=== PATIENT | female | born 1930 | race Caucasian/White ===

== ENCOUNTER 2019-01-21 13:48 | Inpatient (IN) | payer OTHER ==
[~2019-01-21] VITALS: Ht 154.9 cm; Wt 44.9 kg
[2019-01-21] VITALS (7 sets, daily range): BP systolic 118–155; BP diastolic 60–78
--- NOTE | ~2019-01-21 | EKG ---
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
--- NOTE | ~2019-01-21 | EKG ---
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
--- NOTE | ~2019-01-21 | PR ---
[place], [place] PROGRESS NOTE NAME: JAVON TRUJILLO V UNIT #: [id number] ROOM: 419 DOCTOR: OXANA PEREZ,JUNE BIRTHDATE: [birth year] DOS: 01/27/2019 SUBJECTIVE: The patient is an 88-year-old female who is being followed for an Acinetobacter bacteremia. She had positive blood cultures on 01/21. Repeat blood cultures from the 5th remained sterile. She is alert, somewhat confused. She is oriented to person and place, confused to time and present illness. Denies any pain. Denies nausea, vomiting, or diarrhea. No cough or shortness of breath. No dysuria that she is aware of. No abdominal pain. She has been afebrile overnight. She continues on cefepime. LABORATORY DATA: No new labs today. PHYSICAL EXAMINATION: VITAL SIGNS: Temperature 98.0, pulse 74, respirations 18, BP 182/87. GENERAL: An 88-year-old female, in no acute distress. HEAD, EYES, EARS, NOSE AND THROAT: Normocephalic, no thrush. NECK: Supple. LUNGS: Clear to auscultation bilaterally. Respirations even and unlabored. HEART: Regular rhythm. No murmur appreciated. ABDOMEN: Soft, nondistended, nontender. Positive bowel sounds. EXTREMITIES: No edema or deformity, +2 bilateral dorsalis pedal pulses. SKIN: Warm, dry, and free of rashes. ASSESSMENT: Acinetobacter bacteremia of unknown etiology. PLAN: She is to continue cefepime at this point for a total of 2 weeks from when her blood cultures cleared on 01/23. CT scans of the abdomen, pelvis, neck, and head reviewed with no significant etiology noted for her bacteremia. She does have a pacemaker in place and possibly to have a MELISSA on Tuesday, rule out infection of the hardware. ADDENDUM I agree with the assessment and plan, reviewed the labs and imaging, made the necessary changes in the note. JUNE CHRIS DAIGLE [place], [place] PROGRESS NOTE NAME: JAVON TRUJILLO V UNIT #: [id number] ROOM: 419 DOCTOR: OXANA PEREZ,JUNE BIRTHDATE: [birth year] Luisa Tavarez MD CM:MIKE [id number] JUNE OXANA PEREZ 01/31/19 0252 interface
--- NOTE | ~2019-01-21 | EKG ---
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
--- NOTE | ~2019-01-21 | CON ---
[place], [place] REPORT OF CONSULTATION [id number] #: [id number] ROOM: 419 DOCTOR: HI CARROLL BIRTHDATE: [birth year] DOS: 01/27/2019 CARDIOLOGY CONSULTATION REASON FOR CONSULTATION: Request for transesophageal echocardiogram to rule out endocarditis. REQUESTING PHYSICIAN: Rosalinda Xiao RN, ACCESS REPRESENTATIVE HISTORY OF PRESENT ILLNESS: An 88-year-old lady with history of cerebrovascular accident, diabetes, seizure disorder, and history of pacemaker placement, presented with altered mental status. Subsequently, found to have Acinetobacter bacteremia and we have been requested to perform MELISSA to rule out endocarditis or device infection. The patient is somewhat encephalopathic. She has multiple family members present including son and daughter who provide most of the history. The patient is denying any specific complaints, but states she does not feel well. Family denies the patient having any history of dysphagia or difficulty swallowing food or choking on food. No esophageal pathology that is aware of. She has never had an EGD. No bleeding problems in the esophagus or stomach. REVIEW OF SYSTEMS: Negative except as described above. PAST MEDICAL HISTORY: Diabetes, CVA, seizure disorder, bradycardia, hypertension. PAST SURGICAL HISTORY: Includes a hysterectomy and a pacemaker placed about 10 years ago with a recent generator change in the past 1 year. She follows with Dr. Richmond for Electrophysiology. No other cardiac problems. She has never had a heart catheterization. They believe she had a stress test many years ago. FAMILY HISTORY: Noncontributory given age. Her parents are . SOCIAL HISTORY: She denies alcohol, tobacco or drug use. HOME MEDICATIONS: Include aspirin 81 mg daily, lisinopril 5 mg daily, metformin 500 mg daily, mirtazapine 7.5 mg daily, nifedipine 60 mg daily, phenytoin and pravastatin 20 mg daily. PHYSICAL EXAMINATION: VITAL SIGNS: Afebrile, pulse 85, respirations 16, blood pressure 194/92, saturating 98% on room air. GENERAL APPEARANCE: She is a petite elderly lady who is sitting in a chair and is a bit lethargic. ENT: Shows moist mucous membranes. She has dentures. NECK: Supple. JVP is normal. No carotid bruits. RESPIRATORY: She has bibasilar rales, otherwise clear. CARDIOVASCULAR: Regular rhythm with normal rate. No appreciable murmurs. She [place], [place] REPORT OF CONSULTATION NAME: JAVON TRUJILLO V UNIT #: [id number] ROOM: 419 DOCTOR: HI CARROLL BIRTHDATE: [birth year] has a left chest wall pacemaker with no fluctuance noted. ABDOMEN: Positive bowel sounds. Soft, nontender. EXTREMITIES: Warm, well perfused. Her legs are thin. There is no edema. 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 LABORATORY DATA: White blood cell count 9.2, hemoglobin 13.2, platelets 151, creatinine 0.95. 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 Ybgv-[id number]-kayglzmv stenosis of the A2 segment of the right anterior cerebral artery. Mild proximal bilateral internal carotid artery stenosis. Mild aneurysm of the ascending aorta 3.[address] abdomen and pelvis showed no acute process. Chest x-ray from 01/21/2019 showed clear lungs. IMPRESSION: 1. Acinetobacter bacteremia. 2. History of permanent pacemaker, details unknown, followed by Dr. Richmond. 3. Hypertension, poorly controlled. 4. Encephalopathy. 5. Seizure disorder. 6. Diabetes. RECOMMENDATIONS: Risks and benefits of transesophageal echocardiogram discussed with the family. The patient is not able to consent and does not demonstrate complete understanding. She had no contraindications of MELISSA and it is reasonable to proceed. She may be at slightly elevated risk of complications given her advanced age and small body habitus. The patient's family understands the risks including rare complication of esophageal rupture and is willing to proceed. Arrangements will be made for transesophageal echocardiogram performed on Tuesday. I will see the patient as needed over the weekend and plan for MELISSA will be made. Thank you for the consultation. Please call with any questions. [place], [place] REPORT OF CONSULTATION NAME: JAVON TRUJILLO V UNIT #: [id number] ROOM: 419 DOCTOR: HI CARROLL BIRTHDATE: [birth year] Dr. HI CARROLL MD CM:CONSTR:REPORT OF CONSULTATION 1108 01/29/19 0743 interface
[~2019-01-21 13:48] MED LIST: ADVIL PO; ASPIRIN FOR CHI81 MG PO; CORDROL20 MG PO; DILANTIN KAPSE100 MG PO; HYDROCODONE BIT1 T11 PO; NIFEDIPINE ER60 MG PO; OMEGA 31000 MG PO; PAROXETIN PO; VITAMIN D1000 IU PO
[2019-01-21 14:04] LABS: BASO % 0.3 % (0.0-1.0); EOS % 0.2 % (1.0-4.0); HEMATOCRIT 40.6 % (37.0-47.0); HEMOGLOBIN 14.6 g/dl (12.0-16.0); LYMPH # 1.8 10*3/uL (1.3-4.4); LYMPH % 16.3 % (27.0-41.0); MEAN PLATELET VOLUME 9.7 fl (9.6-12.3); MONO # 0.6 10*3/uL (0.1-1.0); MONO % 4.9 % (3.0-9.0); NEUT # 8.8 10*3/uL (2.3-7.9); NEUT % 77.9 % (47.0-73.0); PLATELET COUNT AUTOMATED 166 10*3/uL (130-400); RED BLOOD COUNT 4.56 10*6/uL (4.10-5.10); RED CELL DISTRI WIDTH 11.9 % (0-14.5); WHITE BLOOD COUNT 11.3 10*3/uL (4.8-10.8)
[2019-01-21 14:16] LABS: ACT PARTIAL THROMBO TIME 25.1 SECONDS (20.0-32.1)
[2019-01-21 14:20] LABS: ALBUMIN 4.3 gm/dl (3.1-4.5); ALKALINE PHOSPHATASE 73 U/L (45-117); BUN 27 mg/dl (7-24); CHLORIDE 104 mmol/L (98-107); CREATININE 0.99 mg/dL (0.55-1.02); POTASSIUM 4.4 mmol/L (3.5-5.1); SGOT/AST 22 IU/L (3-35); SGPT/ALT 22 U/L (12-78); SODIUM 135 mmol/L (136-145); TOTAL PROTEIN 8.1 gm/dL (6.4-8.2)
--- NOTE | 2019-01-21 14:22 | NUR ---
Elen CHAUDHARY NP AND RN SAMMIE NOTIFIED OF CRITICAL LATIC ACID OF 3.4
[2019-01-21 14:25] LABS: TROPONIN I < 0.015 ng/ml (<0.045)
[2019-01-21 15:40] LABS: BILIRUBIN NEGATIVE (NEGATIVE); BLOOD NEGATIVE (NEGATIVE); CLARITY CLEAR (CLEAR); COLOR YELLOW (YELLOW); GLUCOSE NEGATIVE (NEGATIVE); KETONE NEGATIVE (NEGATIVE); LEUKO ESTERASE NEGATIVE (NEGATIVE); NITRITE NEGATIVE (NEGATIVE); SPECIFIC GRAVITY 1.015 (1.005-1.030); UROBILINOGEN 0.2 E.U./dl (0.2-1.0)
[2019-01-21 15:46] LABS: EPITHELIAL CELLS TNTC; WBC 0-2 wbc/hpf (0-5)
--- NOTE | 2019-01-21 18:41 | NUR ---
PT TO BE TAKEN UPSTAIRS AFTER 7 PM TONIGHT.
--- NOTE | 2019-01-21 19:44 | NUR ---
A 88, admitted to , under the services of GREGG Sotelo DO with a diagnosis of METABOLIC ENCEPHALOPATHY. Chief complaint is CHANGE IN MENTAL STATUS PER DAUGHTER. Patient arrived via stretcher from ER. Monitor applied. Initial assessment completed. Vital signs taken and recorded. GREGG SOTELO DO notified of admission to the unit. Orders received. See assessment for past medical history, medications and allergies. Patient and/or family oriented to unit. [facility] visitation policy reviewed. Clothing/patient valuable form completed. SANDY MILLER
--- NOTE | 2019-01-21 20:25 | NUR ---
NOTIFIED DR CARTER OF PT'S LACTIC ACID OF 3.5. NO NEW ORDERS. CONTINUE TO MONITOR THE PT.
[2019-01-21] MEDS ORDERED: PRAVASTATIN SOD20 MG PO (20:32)
[2019-01-21] MEDS ORDERED: MIRTAZAPINE7.5 MG PO (20:33)
[2019-01-21] MEDS ORDERED: METFORMIN XR500 MG PO (20:33)
[2019-01-21] MEDS ORDERED: LISINOPRIL5 MG PO (20:34)
[2019-01-21] MEDS ORDERED: AVPAK EXTENDED100 M1 PO ×3 (20:44→20:46)
--- NOTE | 2019-01-21 20:49 | NUR ---
SPOKE WITH DR CARTER. INFORMED THAT PT'S MED REC IS COMPLETED. ORDERS RECEIVED. CONTINUE TO MONITOR THE PT.
--- NOTE | 2019-01-21 21:40 | NUR ---
PRN TYLENOL GIVEN FOR TEMP OF 100.2. WILL MONITOR FOR EFFECTIVENESS.
--- NOTE | 2019-01-21 22:34 | NUR ---
RE-EVALUATED. PRN TYLENOL EFFECTIVE. TEMP IS 99.6. CONTINUE TO MONITOR THE PT.
--- NOTE | 2019-01-21 23:22 | NUR ---
DR CARTER AWARE OF LACTIC ACID
[2019-01-22] VITALS: BP 149/65
--- NOTE | 2019-01-22 03:40 | NUR ---
24 HR chart check completed.
[2019-01-22 07:05] LABS: BASO % 0.4 % (0.0-1.0); EOS # 0.1 10*3/uL (0.0-0.4); EOS % 0.8 % (1.0-4.0); HEMATOCRIT 34.6 % (37.0-47.0); HEMOGLOBIN 12.1 g/dl (12.0-16.0); LYMPH # 1.8 10*3/uL (1.3-4.4); LYMPH % 25.3 % (27.0-41.0); MEAN CELL VOLUME 91.1 fl (81.0-99.0); MEAN CORPUSCULAR HGB 31.8 pg (27.0-31.0); MEAN PLATELET VOLUME 10.2 fl (9.6-12.3); MONO # 0.6 10*3/uL (0.1-1.0); MONO % 8.5 % (3.0-9.0); NEUT # 4.6 10*3/uL (2.3-7.9); NEUT % 64.9 % (47.0-73.0); PLATELET COUNT AUTOMATED 142 10*3/uL (130-400); RED CELL DISTRI WIDTH 11.9 % (0-14.5); WHITE BLOOD COUNT 7.2 10*3/uL (4.8-10.8)
[2019-01-22 07:32] LABS: VITAMIN D, 25-HYDROXY 14.9 ng/mL (30-100)
[2019-01-22 07:40] VITALS: BP 160/60
[2019-01-22 07:45] LABS: BUN 24 mg/dl (7-24); CHLORIDE 108 mmol/L (98-107); CREATININE 0.83 mg/dL (0.55-1.02); POTASSIUM 3.8 mmol/L (3.5-5.1); SODIUM 141 mmol/L (136-145)
[2019-01-22 07:52] LABS: THYROID STIM HORMONE (HS) 0.627 uIU/ml (0.358-4.75)
--- NOTE | 2019-01-22 08:09 | NUR ---
Magalying screen and Occupational Therapy referral received. Thank you. Carolina Kirk OTR/L
--- NOTE | 2019-01-22 09:00 | NUR ---
Insurance Policy Issue Clerk in to talk to patient. Patient states lives at home with alone. There are few steps in the home. Physician: kameron cavazos Pharmacy: [facility] health services: none Patient's level of ADLs: MINIMAL ASSIST Patient has working utilities: all working DME: cane Follow-up physician's appointment after d/c: will be made by hospitalist nurse director upon discharge Does patient want to access PORTAL?: no Discharge plan discussed with patient she states she lives at home alone, she has a cane for ambulation but only uses it if she goes to the store, she has a daughter who helps her with whatever she needs, discussed with her VNA and she declines any services at this time, case management will follow. BRI GARBER
--- NOTE | 2019-01-22 10:16 | NUR ---
IV STARTED RIGHT WRIST #22, TOLERATED WELL, GOOD BLOOD RETURN
[2019-01-22] MEDS ORDERED: LATANOPROST 2.2.5 ML OU (11:07)
[2019-01-22] MEDS ORDERED: ZYRTEC10 M3 PO (11:56)
[2019-01-22 12:00] VITALS: BP 181/79
--- NOTE | 2019-01-22 14:15 | NUR ---
Occupational Therapy evaluation completed on 4 with full eval to follow. Precautions include fall risk; bed alarm,impaired cognition;orientation and [place]AK[place] v.s impaired ability to follow 1-2 step instructions, moderate complexity level 95951 via chart review, testing and evaluation. Recommend OT per POC and home with family and home health SN,OT,PT. Thank you for this referral. Carolina Kirk OTR/L
[2019-01-22 16:00] VITALS: BP 180/87
[2019-01-22 18:28] VITALS: BP 140/54
[2019-01-22 20:00] VITALS: BP 165/80
[2019-01-23] VITALS: BP 180/84
--- NOTE | 2019-01-23 01:26 | NUR ---
24 HR chart check completed.
--- NOTE | 2019-01-23 04:44 | NUR ---
PATIENT SET BED ALARM OFF MULTIPLE TIMES. SWINGING AT STAFF AND VERY AGITATED. PATIENT THREW DENTURES ACROSS THE ROOM. ASSISTED BACK TO BED AND REORIENTED TO PLACE AND TIME. BODY AND BED ALARM IN PLACE. BED IN LOWEST POSITION, CALL LIGHT IN REACH
--- NOTE | 2019-01-23 06:12 | NUR ---
DR CARTER AWARE OF POSITIVE BLOOD CULTURES
--- NOTE | 2019-01-23 07:25 | NUR ---
ARRIVED ON SHIFT, INTRODUCED TO PATIENT, BEDSIDE REPORT RECEIVED, PATIENT ASSISTED TO BATHROOM AND BACK TO BED, BED ALARM IN PLACE, WHITE BOARD UPDATED.
--- NOTE | 2019-01-23 07:48 | NUR ---
Shift chart check completed.
[2019-01-23 08:00] VITALS: BP 140/70; BP 149/75
[2019-01-23 12:00] VITALS: BP 116/70
--- NOTE | 2019-01-23 12:45 | NUR ---
Discharge instructions reviewed with patient/family. Patient receptive and verbalizes understanding. Follow-up care arranged AT [facility], ADVISED I NEEDED TO GET PAPERWORK FOR THEM TO TAKE TO [facility], THEY LEFT VIA W/C BY FAMILY, PRIOR TO GETTING NEED PAPERWORK NURSE TO NURSE GIVEN TO RECEIVING FACILITY NURSE ROBERTS, SHE STATED SHE WILL SEND FAMILY BACK TO GET PAPER WORK. IV REMOVED. Written instructions given to patient/family. ISSAC MAX
--- NOTE | 2019-01-23 13:42 | NUR ---
OT NOTE Pt was seen this P.M. 1:1 for 17 minute OT session. Upon arrival pt was supine in bed. Pt identified by name and and had no complaints at this time. Pt transferred supine to sit EOB with SBA. Sit to stand completed from the EOB with CGA and use of straight cane for UE support. Functional mobility was then completed into the bathroom with CGA and use of straight cane. Pt had multiple LOB throughout that required Sloan to correct. Pt transferred on/off standard commode with modA due to requiring assist with sequencing of task and following commands. Pt then stood sink side while washing her hands with Sloan for sequencing of task, pt had retrograde posture that required Sloan to correct. Functional mobility then completed around the room to challenge cane safety and pt presented with fair safety, LOB occured while turning that required Sloan to correct. Pt was educated on safe turniing technique and presented with poor carry over. Pt transferred back into the bed sit to supine with SBA. There she was left with call lighti nh and, tray table in place, and bed alarm activated for safety. Continue with rec D/C plan to home with home health. DOLORES Chase/Lily
[2019-01-23 16:00] VITALS: BP 141/78
[2019-01-23 20:00] VITALS: BP 157/80
[2019-01-24] VITALS: BP 150/70
--- NOTE | 2019-01-24 00:29 | NUR ---
PATIENT REFUSING TO PLACED CARDIAC MONIOTR BACK ON, KEEPS RIPPING OFF. INFORMED, STATED OK.
--- NOTE | 2019-01-24 00:30 | NUR ---
Hep Lock discontinued RW. Site symptomatic, PATIENT PULLED OUT. Pressure applied. Sterile dressing applied. LESLY NOLAN
--- NOTE | 2019-01-24 00:31 | NUR ---
IV started right arm with #22 protective cath after 0 attempts. Site prepped with Chloroprep. Sterile dressing applied. Patient tolerated procedure well. LESLY NOLAN
--- NOTE | 2019-01-24 07:20 | NUR ---
ARRIVED ON SHIFT, INTRODUCED TO PATIENT, BEDSIDE REPORT RECEIVED, NO NEEDS VOICED AT THIS TIME, WHITE BOARD UPDATED.
--- NOTE | 2019-01-24 07:50 | NUR ---
Shift chart check completed.
[2019-01-24 08:00] VITALS: BP 140/72; BP 158/74
--- NOTE | 2019-01-24 09:00 | NUR ---
case management visits with patient, son present, son stated patient would be going to stay with his sister when medically stable for discharge and would like home health services, case management will notify home health when patient is medically stable for discharge
--- NOTE | 2019-01-24 11:15 | NUR ---
CALL PLACED TO DR. ROSALES OFFICE SPOKE TO ANTHONY, SHE VERSED SHE WOULD PUT ON CENSUS FOR PHYSICIAN.
[2019-01-24 12:00] VITALS: BP 153/73
--- NOTE | 2019-01-24 13:48 | NUR ---
PHYSICAL THERAPY Pt too fatigued to participate. Will attempt at later time. Thank you Zandra Peguero, PT, DPT
[2019-01-24 16:00] VITALS: BP 135/62
[2019-01-24 20:00] VITALS: BP 161/72
--- NOTE | 2019-01-24 23:39 | NUR ---
INFORMED THAT THE PATIENT IS CRYING IN HYSTERICS, YELLING OUT FOR HER KIDS. WHEN THE PATIENT WAS ASKED WHAT WAS WRONG SHE STATES, "iM GOING TO SEE MY KIDS FOR THE LAST TIME. IM DYING. GOODBYE." STATED TO ORDER 15MG RESTORIL X1
[2019-01-25] VITALS: BP 159/82
--- NOTE | 2019-01-25 00:39 | NUR ---
PATIENT APPEARS CALM AT THIS TIME. NO LONGER YELLING OUT, PATIENT WATCHING TV. NO DISTRESS NOTED, RESP ARE ERND ON ROOM AIR. WILL MONITOR
--- NOTE | 2019-01-25 01:50 | NUR ---
24 HR chart check completed.
[2019-01-25 08:00] VITALS: BP 142/78; BP 186/75
--- NOTE | 2019-01-25 11:19 | NUR ---
OT NOTE PATIENT IN BED SLEEPING WITH FAMILY PRESENT AND REQUESTED THAT SHE SLEEP. WILL TRY BACK LATER TIME/DATE. MANNY BERNAL/Lily
[2019-01-25 12:00] VITALS: BP 142/70
--- NOTE | 2019-01-25 13:38 | NUR ---
OT NOTE PATIENT SEEN 1:1 OT THIS DATE. PATIENT IDENTIFIED BY NAME AND DATE OF . PATIENT COMPLETED 19 MINUTES OF OT THIS DATE. PATIENT COMPLETED SUPINE TO SIT EOB SBA. COMPLETED SIT TO STAND FROM BED CGA. COMPLETED FUNCTIONAL AMBULATION USE CANE TO BATHROOM CGA. COMPLETED TOILETING TASK CGA. COMPLETED GROOMING TASK STANDING AT SINK CGA COMBING HAIR. PATIENT COMPLETED FUNCTIONAL AMBULATION USE CANE TO BED CGA WITH MIN VERBAL CUES SAFETY. COMPLETED SIT TO SUPINE SBA. COMPLETED LB DRESSING IN LONG SITTING DOFF/RADHA SLIPPERS SUPERVISION AND UB DRESSING RADHA AND DOFF JACKET SBA. FAMILY PRESENT AND ALARM INTACT. CONTINUE TOWARDS PLAN OF CARE. NURSING WITH PATIENT END OF SESSION. MANNY BERNAL/Lily
--- NOTE | 2019-01-25 14:07 | NUR ---
OFF FLOOR FOR CTA.
[2019-01-25 16:00] VITALS: BP 120/84; BP 140/70
[2019-01-25 20:00] VITALS: BP 160/80
--- NOTE | 2019-01-25 20:00 | NUR ---
24 HOUR CHART CHECK COMPLETE.
[2019-01-26] VITALS: BP 149/71
[2019-01-26 05:20] LABS: BASO % 0.3 % (0.0-1.0); EOS # 0.1 10*3/uL (0.0-0.4); EOS % 1.5 % (1.0-4.0); HEMATOCRIT 36.7 % (37.0-47.0); HEMOGLOBIN 13.2 g/dl (12.0-16.0); LYMPH # 1.2 10*3/uL (1.3-4.4); LYMPH % 12.5 % (27.0-41.0); MEAN CELL VOLUME 88.2 fl (81.0-99.0); MEAN CORPUSCULAR HGB 31.7 pg (27.0-31.0); MONO # 0.6 10*3/uL (0.1-1.0); MONO % 6.9 % (3.0-9.0); NEUT # 7.2 10*3/uL (2.3-7.9); NEUT % 78.6 % (47.0-73.0); PLATELET COUNT AUTOMATED 151 10*3/uL (130-400); RED BLOOD COUNT 4.16 10*6/uL (4.10-5.10); RED CELL DISTRI WIDTH 12.2 % (0-14.5); WHITE BLOOD COUNT 9.2 10*3/uL (4.8-10.8)
[2019-01-26 06:18] LABS: CREATININE 0.95 mg/dL (0.55-1.02)
[2019-01-26 08:00] VITALS: BP 178/80
--- NOTE | 2019-01-26 08:53 | NUR ---
NOTIFIED SILKE PEREZ OF IDENTIFIED BLOOD CULTURE ORGANISM. ORDERED TO NOTIFY AND OBTAIN NEW ABX ORDER FROM HER.
--- NOTE | 2019-01-26 09:01 | NUR ---
YELENA SÁNCHEZ CALLED BACK. SAID SHE WOULD CALL LAB AND POSSIBLY CHANGE THE CURRENT ABX REGIMEN HERSELF.
--- NOTE | 2019-01-26 11:41 | NUR ---
SILKE PEREZ NOTIFIED OF BP 168/72 MANUAL. NO NEW ORDERS REC'D.
[2019-01-26 12:00] VITALS: BP 168/72
--- NOTE | 2019-01-26 13:16 | NUR ---
OT NOTE Pt was seen this P.M. 1:1 for 16 minute OT session. Upon arrival pt was supine in bed. Pt identified by name and and had no complaints at this time other than increased fatigue. Pt transferred supine to sit EOB with Sloan for assist with UB. Sit to stand completed from the bed level with Sloan and use of straight cane for UE support. Upon inital rise pt had LOB forwards due to quick rise that required Sloan to correct. Functional mobility was completed to the bathroom with Sloan and use of straight cane due to unsteady gait and multiple LOB over all planes due to poor safety awareness. Pt transferred on/off standard commode with Sloan. Clothing management completed with Sloan due to being unsteady and having LOB without UE support. Pt then stood sink side while washing her hands with CGA. Functional mobility then completed around the room with CGA and use of straight cane. While turning pt had LOB to the R that required Sloan to correct. Safe turning technique education provided and pt completed well with verbal instructions however when no verbal instructions provided pt had poor carry over. Pt transferred back into bed sit to supine with SBA. There she was left with call light in hand, tray table in place, and family at bedside. Continue with rec D/c plan to home with home health. DOLORES Chase/Lily
[2019-01-26 16:00] VITALS: BP 160/64
[2019-01-26 20:00] VITALS: BP 160/80; BP 176/74
--- NOTE | 2019-01-26 20:49 | NUR ---
DR CARTER NOTIFIED OF PT MANUAL BP READING OF 160/80. NO NEW ORDERS AT THIS TIME.
--- NOTE | 2019-01-26 21:00 | NUR ---
24 HOUR CHART CHECK COMPLETE.
[2019-01-27] VITALS: BP 150/80
[2019-01-27 08:00] VITALS: BP 184/92
[2019-01-27 12:00] VITALS: BP 182/87
[2019-01-27 16:00] VITALS: BP 166/84; BP 189/81
--- NOTE | 2019-01-27 17:38 | NUR ---
AMBULATES TO BR X 1 ASSIST, WITH STEADY GAIT
[2019-01-27 20:00] VITALS: BP 154/63
[2019-01-28] VITALS: BP 170/71
[2019-01-28 06:57] LABS: BASO % 0.6 % (0.0-1.0); EOS # 0.2 10*3/uL (0.0-0.4); EOS % 3.1 % (1.0-4.0); HEMOGLOBIN 13.7 g/dl (12.0-16.0); LYMPH # 1.4 10*3/uL (1.3-4.4); LYMPH % 19.7 % (27.0-41.0); MEAN CELL VOLUME 88.6 fl (81.0-99.0); MEAN CORPUSCULAR HGB 31.1 pg (27.0-31.0); MEAN CORPUSCULAR HGB CONC 35.1 g/dl (33.0-37.0); MONO # 0.6 10*3/uL (0.1-1.0); MONO % 7.9 % (3.0-9.0); NEUT # 4.8 10*3/uL (2.3-7.9); NEUT % 68.4 % (47.0-73.0); PLATELET COUNT AUTOMATED 166 10*3/uL (130-400); RED CELL DISTRI WIDTH 12.2 % (0-14.5); WHITE BLOOD COUNT 7.1 10*3/uL (4.8-10.8)
[2019-01-28 07:13] LABS: BUN 18 mg/dl (7-24); CHLORIDE 108 mmol/L (98-107); CREATININE 0.94 mg/dL (0.55-1.02); POTASSIUM 3.1 mmol/L (3.5-5.1); SODIUM 140 mmol/L (136-145)
--- NOTE | 2019-01-28 07:56 | NUR ---
IN TO ASSESS PATIENT, PATIENT ALERT AND ORIENTED TO PERSON AND PLACE, NOT TIME OR SITUATION. BREATHING IS EASY AND REGULAR ON ROOM AIR. NO COMPLAINTS. NO EDEMA NOTED. NO CP. NO SOB. NO N/V/D/C PER PT. DIMINISHED LUNGS T/O. NORMOACITVE BOWELS X4 QUADS. CALL LIGHT WITHIN REACH, WILL MONITOR
[2019-01-28 08:00] VITALS: BP 158/72
--- NOTE | 2019-01-28 09:46 | NUR ---
PATIENTS FAMILY MEMBER REQUESTING THAT HER SUGAR BE CHECKED. SUGAR 209. HE STATED SHE ATE SUGAR THIS MORNING. TOLD HIM WE WOULD CHECK HER SUGAR CLOSER TO LUNCH
--- NOTE | 2019-01-28 11:00 | NUR ---
SPOKE WITN FAMILY MEMBER IN ROOM. THEY ARE AWARE OF PATIENT GOING FOR MELISSA TOMORROW. DISCUSSED WITH PATIENT WELL
[2019-01-28 12:00] VITALS: BP 157/93; BP 160/80
[2019-01-28 16:00] VITALS: BP 147/80
--- NOTE | 2019-01-28 16:22 | NUR ---
SPOKE WITH DR. CARTER. NOTIFIED HIM THAT THERE WERE PLANS FOR THE PATIENT TO HAVE A MELISSA TOMORROW, BUT NO ORDER WAS EVER ENTERED. DR. CARTER STATED TO PUT THE ORDER IN
[2019-01-28 20:00] VITALS: BP 168/71
[2019-01-29] VITALS (8 sets, daily range): BP systolic 99–174; BP diastolic 52–78
--- NOTE | 2019-01-29 00:51 | NUR ---
PATIENT RESTING IN BED WITH EYES CLOSED AT THIS TIME. RESPIRATIONS REGULAR AND NON-LABORED ON ROOM AIR. NO SIGNS OR SYMPTOMS OF DISTRESS NOTED. PATIENT AROUSES TO VERBAL STIMULI. DENIES COMPLAINTS OF PAIN OR DISCOMFORT. BED ALARM ON D/T BEING FALL RISK. AMBULATES TO BATHROOM WITH CANE AND ASSIST X1. VITAL SIGNS STABLE. PATIENT NPO AT MIDNIGHT FOR MELISSA TOMORROW. WILL CONTINUE TO MONITOR. CALL LIGHT IN REACH.
--- NOTE | 2019-01-29 01:22 | NUR ---
24 HR chart check completed.
[2019-01-29 06:08] LABS: BASO % 0.3 % (0.0-1.0); EOS # 0.2 10*3/uL (0.0-0.4); HEMATOCRIT 36.3 % (37.0-47.0); HEMOGLOBIN 12.9 g/dl (12.0-16.0); LYMPH # 1.5 10*3/uL (1.3-4.4); LYMPH % 16.3 % (27.0-41.0); MEAN CELL VOLUME 90.3 fl (81.0-99.0); MEAN CORPUSCULAR HGB 32.1 pg (27.0-31.0); MEAN CORPUSCULAR HGB CONC 35.5 g/dl (33.0-37.0); MEAN PLATELET VOLUME 9.8 fl (9.6-12.3); MONO # 0.7 10*3/uL (0.1-1.0); MONO % 8.2 % (3.0-9.0); NEUT # 6.5 10*3/uL (2.3-7.9); NEUT % 72.9 % (47.0-73.0); PLATELET COUNT AUTOMATED 159 10*3/uL (130-400); RED BLOOD COUNT 4.02 10*6/uL (4.10-5.10); RED CELL DISTRI WIDTH 12.5 % (0-14.5); WHITE BLOOD COUNT 8.9 10*3/uL (4.8-10.8)
[2019-01-29 06:21] LABS: BUN 20 mg/dl (7-24); CHLORIDE 106 mmol/L (98-107); CREATININE 0.86 mg/dL (0.55-1.02); POTASSIUM 3.9 mmol/L (3.5-5.1); SODIUM 139 mmol/L (136-145)
--- NOTE | 2019-01-29 07:10 | NUR ---
PT SLEEPING. RESPS REG/EASY WITH NO DISTRESS NOTED. BEDSIDE REPORT RECEIVED FROM ELSA RICHARDS.
--- NOTE | 2019-01-29 08:05 | NUR ---
PHYSICAL THERAPY Patient seen this am 1:1 for therapy visit and was standing at sink in bathroom completing patient care with hospital staff member upon therapist arrival. Patient identified by name / and reports no c/o's pain at this time. Patient ambulates with use of st cane, 45'x 1, CGA during straight line gait and MIN A during all turns. Patient however was very unsteady with decreased stride and demonstrated several episodes of impulsive behaviour due POOR cane step sequence with LOB x 2. Patient returned to supine in bed and remained with call light, tray table, telephone and bed alarm. Will continue per POC as tolerated, total treatment time 14 minutes. Rigo Oneill, PET STORE MERCHANDISER
--- NOTE | 2019-01-29 09:00 | NUR ---
case management visits with patient, she will return home when medically stable and stay wit her daughter for a short period of time, case management will notify home health when patient is medically stable for discharge
--- NOTE | 2019-01-29 10:15 | NUR ---
OT NOTE Attempted to see pt this A.M. for OT session and upon arrival pt was supine in bed "rambling" to herself. Pt was oriented to name only and was unable to be redirected. Pt continued to ramble, would not make eye contact with therapist, and was unable to follow commands. Pt not appropriate for therapy at this time. Will check back at a later time/date and continue with POC as able. DOLORES Chase/Lily
--- NOTE | 2019-01-29 12:24 | NUR ---
OT NOTE Pt was seen this P.M. 1:1 for 24 minute OT session. Upon arrival pt was supine in bed. Pt identified by name and and had no complaints at this time. Pt transferred supine to sit EOB with SBA. Sit to stand completed from bed level with CGA and use of straight cane for UE support. While standing with CGA for safety pt donned gown with Sloan for assist with sequencing. Functional mobility was then completed into the bathroom CGA and use of straight cane. Pt had multiple LOB throughout over all planes due to being impulsive reaching for various items throughout the room that were not needed for task at hand. Pt transferred on/off standard commode with Sloan due to poor safety awareness. Clothing management completed with CGA and toilet hygiene completed with supervision while seated. Pt then stood sink side while wsahing her hands with CGA. Pt was left sitting upright in the recliner with call light in reach, tray table in place, family at bedside, and body alarm activated for safety. COntinue with rec D/C plan to home with home health. DOLORES Chase/Lily
[2019-01-29] MEDS ORDERED: ERTAPENEM1 GM IV (12:31)
--- NOTE | 2019-01-29 19:20 | NUR ---
REPORT RECEIVED FROM DAYLIGHT NURSE. PT IS SLEEPING IN BED. RESPIRATIONS EASY AND UNLABORED. NO SIGNS/SYMPTOMS OF DISTRESS. CALL LIGHT IN REACH.
--- NOTE | 2019-01-29 23:11 | NUR ---
PT SLEEPING AT THIS TIME WITH CALL LIGHT IN REACH
[2019-01-30] VITALS: BP 139/62
--- NOTE | 2019-01-30 01:00 | NUR ---
PT SLEEPING AT THIS TIME. CALL LIGHT IN REACH
--- NOTE | 2019-01-30 01:18 | NUR ---
24 HR chart check completed.
--- NOTE | 2019-01-30 03:00 | NUR ---
PT IS SLEEPING
--- NOTE | 2019-01-30 05:00 | NUR ---
PT LYING IN BED WATCHING TV AT THIS TIME. VOICES NO COMPLAINTS. RESPIRATIONS EASY AND UNLABORED. CALL LIGHT IN REACH.
[2019-01-30 06:25] LABS: BASO % 0.4 % (0.0-1.0); EOS # 0.3 10*3/uL (0.0-0.4); EOS % 3.3 % (1.0-4.0); HEMATOCRIT 37.6 % (37.0-47.0); HEMOGLOBIN 13.1 g/dl (12.0-16.0); LYMPH # 1.4 10*3/uL (1.3-4.4); LYMPH % 18.5 % (27.0-41.0); MEAN CELL VOLUME 90.8 fl (81.0-99.0); MEAN CORPUSCULAR HGB 31.6 pg (27.0-31.0); MEAN CORPUSCULAR HGB CONC 34.8 g/dl (33.0-37.0); MONO # 0.7 10*3/uL (0.1-1.0); MONO % 9.3 % (3.0-9.0); NEUT # 5.3 10*3/uL (2.3-7.9); NEUT % 68.4 % (47.0-73.0); PLATELET COUNT AUTOMATED 161 10*3/uL (130-400); RED BLOOD COUNT 4.14 10*6/uL (4.10-5.10); RED CELL DISTRI WIDTH 12.3 % (0-14.5); WHITE BLOOD COUNT 7.7 10*3/uL (4.8-10.8)
[2019-01-30 06:35] LABS: CHLORIDE 110 mmol/L (98-107); CREATININE 0.92 mg/dL (0.55-1.02); POTASSIUM 4.1 mmol/L (3.5-5.1); SODIUM 139 mmol/L (136-145)
[2019-01-30 06:45] LABS: BUN 31 mg/dl (7-24)
[2019-01-30 08:00] VITALS: BP 154/66
--- NOTE | 2019-01-30 08:15 | NUR ---
OT NOTE Pt was seen this A.M. 1:1 for 15 minute OT session. Upon arrival pt was supine in bed "rambling" to herself and continued with nonsensical ramble throughout entire session. Pt identified by name and on wristband and presented to therapy with increased confusion as indicated by being oriented to self only. Pt transferred supine to sit EOB with Sloan for assist with UB. Sit to stand completed from bed level with CGA and use of straight cane for UE support. Functional mobility was then completed into the bathroom with CGA and use of straight cane with multiple bouts of unsteady gait that required Sloan to correct. Pt transferred on/off standard commode with Sloan and required max verbal prompts for sequencing of task. Clothing management completed with modA due to pt standing saying "what do I do now?" When verbal and tactile instructions were provided pt was still unable to process task or sequence. Pt then stood sink side while washing her hands and completing hair care with Sloan for assist with verbal prompts to continue onto next task due to repeating task over multiple times when no verbal prompts were provided. Pt was left sitting upright in the recliner with call light in hand, tray table in place, and body alarm activated for safety. Continue with POC as indicated. GILMA Chase
--- NOTE | 2019-01-30 08:25 | NUR ---
PHYSICAL THERAPY Patient seen this am 1:1 for therapy visit and was supine in bed upon therapist arrival. Patient identified by name / and presented this morning with candido, shanita "mumbling" to herself throughout entire therapy session. Patient voices no c/o's pain and transfers supine to sit EOB, then sit to stand CGA. Patient ambulated 10'x 1 to bathroom with use of st cane, CGA, then additional 50'x 1, demonstrating unsteady gait pattern and LOB x 1 during 180 turn around. Patient returned to bedside chair with mild fatigue and remained with call light, tray table, body alarm and telephone awaiting breakfast. Will continue per POC as tolerated, total treatment time 17 minutes. Rigo Oneill, [employer]
--- NOTE | 2019-01-30 10:29 | NUR ---
Patient referral faxed to [facility]. waiting on review/acceptance. Requires precert.
[2019-01-30 12:00] VITALS: BP 150/66
--- NOTE | 2019-01-30 12:43 | NUR ---
case management visits with patient, daughter Indira and her are present, discussed with them patient possibly needing iv antibiotics at home, informed them at [facility] is the only facility in the area to accept patient's insurance, discussed with them patient going to [facility] to receive the iv antibiotics, daughter declined she stated patient would be going home with her when she is medically stable for discharge. Indira stated she was fine with administering patient's iv antibiotics if needed. [facility] will be notified when patient is medically stable for discharge, case management will follow
--- NOTE | 2019-01-30 13:44 | NUR ---
case management received a message that patient would need iv ertapenem for two weeks, contacted Catia at [employer], referral faxed, Catia stated she would check benefits and call case management with details
--- NOTE | 2019-01-30 14:47 | NUR ---
PER SURGERY PT WILL HAVE MIDLINE INSERTED TOMORROW. DR WEBBER NOTIFIED.
[2019-01-30 16:00] VITALS: BP 148/69
--- NOTE | 2019-01-30 19:19 | NUR ---
REPORT RECEIVED FROM JORDANA RICHARDS. PT IS SLEEPING AT THIS TIME, RESPIRATIONS ARE EASY AND UNLABORED. CALL LIGHT IN REACH.
[2019-01-30 20:00] VITALS: BP 157/83
--- NOTE | 2019-01-30 23:00 | NUR ---
ASSUMED CARE OF PATIENT. PATIENT SLEEPING BUT AROUSES EASILY. PLEASANT AND COOPERATIVE WITH ASSESSMENT. BREATHING IS EASY AND REGULAR ON ROOM AIR. NO COMPLAINTS AT THIS TIME. CALL LIGHT WITHIN REACH, WILL MONITOR
--- NOTE | 2019-01-30 23:22 | NUR ---
24 HR chart check completed.
[2019-01-31] VITALS: BP 152/69
--- NOTE | 2019-01-31 01:06 | NUR ---
PATIENT SLEEPING. NO DISTRESS NOTED. CALL LIGHT WITHIN REACH
--- NOTE | 2019-01-31 02:35 | NUR ---
PATIENT SLEEPING. BED ALARM INTACT. CALL LIGHT WITHIN REACH, WILL MONITOR
[2019-01-31 06:51] LABS: ALBUMIN 3.1 gm/dl (3.1-4.5); ALKALINE PHOSPHATASE 77 U/L (45-117); BUN 28 mg/dl (7-24); CHLORIDE 109 mmol/L (98-107); CREATININE 0.91 mg/dL (0.55-1.02); POTASSIUM 3.8 mmol/L (3.5-5.1); SGOT/AST 22 IU/L (3-35); SGPT/ALT 30 U/L (12-78); SODIUM 137 mmol/L (136-145); TOTAL PROTEIN 6.7 gm/dL (6.4-8.2)
--- NOTE | 2019-01-31 07:46 | NUR ---
Spoke to Dr. Pruitt regarding patient's IV antibiotics are 100% covered and start of care will be tomorrow at home.
[2019-01-31 08:00] VITALS: BP 160/62
--- NOTE | 2019-01-31 09:04 | NUR ---
case management received a message that patient will be discharged to her daughters home today, contacted [facility] and notified them that patient is being discharged today and start of service of iv antibiotic is tomorrow, case management will follow
--- NOTE | 2019-01-31 09:33 | NUR ---
PATIENT TAKEN OFF FLOOR FOR SCHEDULED MIDLINE INSERTION.
--- NOTE | 2019-01-31 10:22 | NUR ---
PT RETURNED TO ROOM.
[2019-01-31 12:00] VITALS: BP 160/74
--- NOTE | 2019-01-31 12:54 | NUR ---
DAUGHTER AT BEDSIDE. PATIENT EATING LUNCH AT THIS TIME.
[2019-01-31] MEDS ORDERED: LISINOPRIL10 M1 PO (15:21)
[2019-01-31] MEDS ORDERED: AVPAK EXTENDED100 M1 PO (15:21)
--- NOTE | 2019-01-31 15:59 | NUR ---
Discharge instructions reviewed with patient/family. Patient receptive and verbalizes understanding. Follow-up care arranged. Written instructions given to patient/family. DORIS GREGORY.
[2019-01-31 16:00] VITALS: BP 160/60
--- NOTE | 2019-02-01 08:15 | NUR ---
PHYSICAL THERAPY CO-SIGN I approve of the Physical Therapy notes written above. Carisa Polo PT
--- NOTE | 2019-02-01 09:09 | NUR ---
OCCUPATIONAL THERAPY CO-SIGN I approve of the Occupational Therapy notes written above. DUARTE ZALDIVAR OTR/Lily
== END 2019-01-31 15:59 | disposition home or self-care (01) | DRG 101 ==
LOC: ED 13:48 → EDHOLD 18:00 → 4E 18:00
PROVIDERS: Emergency Medicine; Family Medicine; Internal Medicine; Student in an Organized Health Care Education/Training Program; ADMIT Emergency Medicine
PROC: B24BZZ4 Ultrasonography of Heart with Aorta, Transesophageal (ICD-10-PCS; principal; 2019-01-29)
PROC: 05HB33Z Insertion of Infusion Device into Right Basilic Vein, Percutaneous Approach (ICD-10-PCS; 2019-01-30)
DX: G40.909 Epilepsy, unspecified, not intractable, without status epilepticus (principal); E87.2 Acidosis; R78.81 Bacteremia; E87.1 Hypo-osmolality and hyponatremia; E55.9 Vitamin D deficiency, unspecified; I66.02 Occlusion and stenosis of left middle cerebral artery; I66.8 Occlusion and stenosis of other cerebral arteries; I10 Essential (primary) hypertension; I65.23 Occlusion and stenosis of bilateral carotid arteries; E11.65 Type 2 diabetes mellitus with hyperglycemia; E78.00 Pure hypercholesterolemia, unspecified; B96.89 Other specified bacterial agents as the cause of diseases classified elsewhere; Z90.710 Acquired absence of both cervix and uterus; Z90.721 Acquired absence of ovaries, unilateral; Z86.73 Personal history of transient ischemic attack (TIA), and cerebral infarction without residual deficits; Z95.0 Presence of cardiac pacemaker; Z79.82 Long term (current) use of aspirin; Z79.899 Other long term (current) drug therapy; Z79.84 Long term (current) use of oral hypoglycemic drugs; Z79.52 Long term (current) use of systemic steroids